=== PATIENT | male | born 1980 | race Asian ===

== ENCOUNTER → 2019-12-22 08:05 | Outpatient (CLI) | payer BC ==
[2019-12-22 08:25] LABS: BILIRUBIN NEGATIVE (NEGATIVE); KETONE NEGATIVE (NEGATIVE); NITRITE NEGATIVE (NEGATIVE); UROBILINOGEN NORMAL mg/dL (< 2)
[2019-12-22 08:32] LABS: BASOPHILS 0.6 % (0-2); EOSINOPHILS 2.8 % (0-7); HEMATOCRIT 44.6 % (42.0-54.0); IMMATURE GRANULOCYTES 0.3 % (0-5); LYMPHOCYTES 31.7 % (15-50); MCH 29.5 pg (26.0-34.0); MCHC 33.6 g/dL (31.0-37.0); MCV 87.6 fL (80.0-100.0); MONOCYTES 10.2 % (2-11); NEUTROPHILS 54.4 % (40-80); PLATELET COUNT 288 10x3/uL (130-400); RBC 5.09 10x6/uL (4.20-6.10); RDW 12.7 % (11.5-14.5); WBC 7.8 10x3/uL (4.8-10.8)
[2019-12-22 08:37] LABS: CREATININE - URINE 124.4 mg/dL (30-125); PROTEIN - URINE 11.1 mg/dL (0.0-11.9)
[2019-12-22 09:03] LABS: ALBUMIN 4.2 g/dL (3.4-5.0); ALKALINE PHOSPHATASE 45 U/L (30-120); ALT (SGPT) 32 U/L (10-68); BILIRUBIN - TOTAL 0.27 mg/dL (0.2-1.3); CALC OSMOLALITY 277 mosm/kg (275-300); CALCIUM 8.7 mg/dL (8.5-10.1); CARBON DIOXIDE 28.8 mmol/L (21.0-32.0); CHLORIDE - SERUM 104 mmol/L (98-107); CHOLESTEROL, TOTAL 231 mg/dL (0-200); CREATININE - SERUM 0.9 mg/dL (0.6-1.3); GLUCOSE 133 mg/dL (74-106); HDL CHOLESTEROL 33 mg/dL (32-96); LDL CHOLESTEROL 140 mg/dL (0-100); LDL-HDL RATIO 4.2 ratio (1.5-3.5); POTASSIUM - SERUM 3.9 mmol/L (3.5-5.1); PROTEIN - SERUM 7.7 g/dL (6.4-8.2); SODIUM 138 mmol/L (136-145); THYROID STIMULATING HORMONE 1.26 uIU/mL (0.36-3.74); TRIGLYCERIDE 292 mg/dL (30-200); UREA NITROGEN 13 mg/dL (7-18); eGFR NON AFRICAN AMERICAN > 90 mL/min (90-120)
== END | disposition home or self-care (01) ==
LOC: D.LAB 08:05
PROVIDERS: ATTEND Family Medicine
DX: I10 Essential (primary) hypertension (principal); E11.9 Type 2 diabetes mellitus without complications; Z00.00 Encounter for general adult medical examination without abnormal findings